=== PATIENT | female | born 1935 | race Caucasian/White ===

== ENCOUNTER → 2020-01-26 15:02 | Outpatient (BNVA) | payer MEDICARE, MEDICAID, SELFPAY | PROVIDERS: Visit Provider Internal Medicine Cardiovascular Disease | DX: I50.9 Heart failure, unspecified (principal); J44.9 Chronic obstructive pulmonary disease, unspecified; R60.0 Localized edema; Z99.81 Dependence on supplemental oxygen; Z79.899 Other long term (current) drug therapy | CPT/HCPCS: Q3014 ==

== ENCOUNTER 2020-09-05 09:25 | Outpatient (REF) | payer MEDICARE, MEDICAID, SELFPAY ==
[2020-09-05 11:48] LABS: Alanine Aminotransferase 13 U/L (0-31); Albumin Level 4.5 g/dL (3.5-5.0); Alkaline Phosphatase 124 U/L (39-117); Anion Gap 14 (12-20); Aspartate Amino Transferase 19 U/L (5-31); Bilirubin Total 0.6 mg/dL (0.0-1.0); Blood Urea Nitrogen 25 mg/dL (9-16); Calcium 9.5 mg/dL (8.4-10.2); Carbon Dioxide 25 mmol/L (22-29); Chloride 106 mmol/L (96-108); Cholesterol 247 mg/dL; Estimated Glomerular Filt Rate 41; Glucose Fasting 124 mg/dL (60-99); HDL Cholesterol 39 mg/dL; LDL Cholesterol Calculated 140 mg/dl; Potassium 4.4 mmol/L (3.3-5.1); Sodium 141 mmol/L (135-145); Total Protein 7.3 g/dL (6.5-8.0); Triglycerides 342 mg/dL
[2020-09-05 12:13] LABS: TSH reflex Free T4 2.32 uIU/mL (0.32-4.0); Vitamin D 25-OH Total 28.6 ng/mL (>30)
== END 2020-09-05 09:26 | disposition home or self-care (01) ==
LOC: HO.HMGCLDS 09:25
PROVIDERS: PCP Nurse Practitioner Family; Visit Provider Nurse Practitioner Family
DX: I50.9 Heart failure, unspecified (principal)
CPT/HCPCS: 36415; 80053; 80061; 82306; 84443

== ENCOUNTER 2020-09-21 09:46 | Outpatient (REF) | payer MEDICARE, MEDICAID, SELFPAY ==
[2020-09-21 11:40] LABS: Estimated Average Glucose 123 mg/dL; Hemoglobin A1c % 5.9 %
[2020-09-21 11:56] LABS: Cholesterol 236 mg/dL; HDL Cholesterol 39 mg/dL; LDL Cholesterol Calculated 137 mg/dl; Triglycerides 303 mg/dL
== END 2020-09-21 09:47 | disposition home or self-care (01) ==
LOC: HO.HMGCLDS 09:46
PROVIDERS: PCP Nurse Practitioner Family; Visit Provider Nurse Practitioner Family
DX: R73.01 Impaired fasting glucose (principal)
CPT/HCPCS: 36415; 80061; 83036

== ENCOUNTER → 2020-10-04 13:30 | Outpatient (BNVA) | payer MEDICARE, MEDICAID, SELFPAY | PROVIDERS: PCP Nurse Practitioner Family; Visit Provider Internal Medicine Cardiovascular Disease | DX: I50.9 Heart failure, unspecified (principal) | CPT/HCPCS: Q3014 ==

== ENCOUNTER → 2020-12-27 11:39 | Outpatient (BNVA) | payer MEDICARE, MEDICAID, SELFPAY | PROVIDERS: PCP Nurse Practitioner Family; Referring Provider Nurse Practitioner Family; Visit Provider Internal Medicine Cardiovascular Disease | DX: I50.9 Heart failure, unspecified (principal); J44.9 Chronic obstructive pulmonary disease, unspecified | CPT/HCPCS: Q3014 ==

== ENCOUNTER → 2021-05-16 09:50 | Outpatient (BNVA) | payer MEDICARE, MEDICAID, SELFPAY | PROVIDERS: PCP Nurse Practitioner Family; Referring Provider Nurse Practitioner Family; Visit Provider Internal Medicine Cardiovascular Disease | DX: I50.30 Unspecified diastolic (congestive) heart failure (principal); R06.00 Dyspnea, unspecified; J44.9 Chronic obstructive pulmonary disease, unspecified | CPT/HCPCS: 93005; 99212 ==

== ENCOUNTER → 2021-12-11 13:53 | Outpatient (BNVA) | payer MEDICARE, MEDICAID, SELFPAY | PROVIDERS: PCP Nurse Practitioner Family; Referring Provider Nurse Practitioner Family; Visit Provider Nurse Practitioner Family | DX: I35.0 Nonrheumatic aortic (valve) stenosis (principal); I50.9 Heart failure, unspecified; R06.00 Dyspnea, unspecified; J44.9 Chronic obstructive pulmonary disease, unspecified; Z79.899 Other long term (current) drug therapy | CPT/HCPCS: 99212 ==

== ENCOUNTER → 2022-07-03 13:56 | Outpatient (BNVA) | payer MEDICARE, MEDICAID, SELFPAY | PROVIDERS: PCP Nurse Practitioner Family; Referring Provider Nurse Practitioner Family; Visit Provider Nurse Practitioner Family | DX: I35.0 Nonrheumatic aortic (valve) stenosis (principal); I50.9 Heart failure, unspecified; J44.9 Chronic obstructive pulmonary disease, unspecified | CPT/HCPCS: 93005; 99212 ==

== ENCOUNTER 2022-12-23 08:03 | Outpatient (REF) | payer MEDICARE, MEDICAID, SELFPAY ==
[2022-12-23 08:52] LABS: MANUAL DIFF FLAG NO
[2022-12-23 09:01] LABS: Basophils Percent Auto 0.7 % (0-2); Eosinophils Absolute Auto 0.1 X10*3/uL (0.0-0.4); Eosinophils Percent Auto 1.3 % (0-4); Hematocrit 42.8 % (37.0-47.0); Hemoglobin 13.8 g/dl (12.0-16.0); Imm Gran Abs Auto 0.01 X10*3/uL (0.00-0.03); Imm Gran Pct Auto 0.2 % (0.0-0.4); Lymphocytes Absolute Auto 0.8 X10*3/uL (1.2-4.9); Mean Corpuscular HGB Conc 32.2 g/dl (31.0-35.0); Monocytes Absolute Auto 0.4 X10*3/uL (0.1-1.2); Monocytes Percent Auto 8.2 % (2-11); Neutrophils Absolute Auto 3.3 x10*3/uL (2.0-8.3); Neutrophils Percent Auto 72.6 % (45-73); Platelet Count 211 X10*3/uL (160-400); Red Cell Distribution Width 14.1 % (11.0-16.0); White Blood Count 4.5 X10*3/uL (4.8-10.8)
[2022-12-23 09:32] LABS: Alanine Aminotransferase 12 U/L (0-31); Alkaline Phosphatase 113 U/L (39-117); Anion Gap 16 (12-20); Aspartate Amino Transferase 21 U/L (5-31); Blood Urea Nitrogen 24 mg/dL (9-16); Calcium 9.2 mg/dL (8.4-10.2); Carbon Dioxide 25 mmol/L (22-29); Chloride 103 mmol/L (96-108); Cholesterol 233 mg/dL (<200); Estimated Glomerular Filt Rate 36; Glucose Random 120 mg/dL (60-115); HDL Cholesterol 35 mg/dL (>40); LDL Cholesterol Calculated 149 mg/dL (<100); Potassium 3.6 mmol/L (3.3-5.1); Sodium 140 mmol/L (135-145); Total Protein 6.9 g/dL (6.5-8.0); Triglycerides 249 mg/dL (<150)
== END 2022-12-23 08:04 | disposition home or self-care (01) ==
LOC: HO.LAB 08:03
PROVIDERS: PCP Nurse Practitioner Family; Visit Provider Nurse Practitioner Family
DX: I35.0 Nonrheumatic aortic (valve) stenosis (principal); I50.30 Unspecified diastolic (congestive) heart failure; J44.9 Chronic obstructive pulmonary disease, unspecified; E78.5 Hyperlipidemia, unspecified; Z79.899 Other long term (current) drug therapy
CPT/HCPCS: 36415; 80053; 80061; 85025; 99212

== ENCOUNTER 2022-12-23 08:03 | Outpatient (AMB) | payer MEDICARE, MEDICAID, SELFPAY ==
--- NOTE | 2022-12-23 08:15 | A.OFFVIS_ITS ---
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 HPI f/u with Echo patient refuse doing echo HPI Details Lynn is an 87-year-old female with past medical history hyperlipidemia, diastolic heart failure, aortic stenosis who presents for follow-up. Echo had been ordered prior to this visit and she declined it. Today she states she has been doing well since her last visit 6 months ago. She is pleased with how she is feeling. She reports some mild shortness of breath when she walks around her apartment. She ambulates with a walker. At this visit she is sitting in a wheelchair. She is mostly sedentary. No chest discomfort at rest or with activity. She describes 1 episode of dizziness when she was sitting at her table doing coloring. No recurrent dizziness, no presyncope, syncope, falls. No PND, orthopnea. She gets some mild edema in her right lower leg. She has a history a right total knee replacement which still gives her discomfort. Takes her Lasix as directed. On no other medications. Daughter in-law is present. [facility] Medical History Aortic stenosis Surgical History Hx of appendectomy Hx of tonsillectomy History of knee surgery History of hysterectomy Family History Mother No problems noted. Father CAD (coronary artery disease) Social History Alcohol intake: never Patient Tobacco Use Status: Former Tobacco user Quit Date: 1999 Years Smoked: 15+ Review of Systems Const All systems reviewed & are unremarkable except as noted in HPI and below ENT Denies dizziness Card Denies chest pain, Denies chest pain at rest, Denies chest pain with activity, Denies rapid heart rate, Denies pedal edema, Denies edema, Denies leg edema, Denies lightheadedness, Denies palpitations, Denies dyspnea, Denies dyspnea on exertion and Denies orthopnea Resp Denies cough, Denies dyspnea and Denies dyspnea on exertion GI Denies hematochezia and Denies change in stool character Musc Reports abnormal gait, Reports limited range of motion, Denies muscle cramps, Denies muscle weakness, Denies numbness, Denies radiating pain into limb, Denies stiffness and Denies tingling Neuro Reports abnormal gait, Denies dizziness, Denies numbness and Denies tingling Endo Denies palpitations Physical Exam Const Other: sitting in wheelchair General: cooperative, healthy appearing, comfortable and no acute distress Orientation/consciousness: patient oriented x3 Neck Neck: Yes normal visual inspection and Yes no JVD Resp Effort & Inspection: normal respiratory effort Auscultation: clear to auscultation bilaterally, no crackles, no rales, no rhonchi and no wheezes Cardio Rate: regular rate Rhythm: regular rhythm Heart sounds: S1 normal heart sound present, S2 normal heart sound present, no gallops, Murmur heart sound present (Faint systolic) and no rubs GI Inspection: Yes normal to inspection Neuro General: patient oriented x3 Extrem General: Yes normal to inspection Psych Appearance: grossly normal Mental Status: mental status grossly normal Speech and movement: Normal speech and movement present Assessment & Plan Assessment & Plan (1) Aortic stenosis: Code(s): I35.0 - Nonrheumatic aortic (valve) stenosis Qualifiers: Cardiac valve disease etiology: nonrheumatic Qualified Code(s): I35.0 - Nonrheumatic aortic (valve) stenosis Plan: History of mild aortic stenosis. Last echo done 12/23/2016 showing EF 60-65%, no regional wall motion abnormalities, mild aortic stenosis, [id number] mitral regurgitation, mild pulmonary hypertension. Faint systolic murmur noted on examination, does not sound severe. She has no clinical signs of heart failure. No cardinal signs of severe . Discussed diagnosis of with her in detail. She declines future echo cardiograms as she says she is not going to have valve surgery in the event that it is needed. Reviewed signs and symptoms of severe aortic stenosis. Emergency care if ever needed for symptoms. Cardiology follow-up in 1 year, sooner if needed (2) CHF (congestive heart failure): Code(s): I50.9 - Heart failure, unspecified Qualifiers: Heart failure type: diastolic Heart failure chronicity: chronic Qualified Code(s): I50.32 - Chronic diastolic (congestive) heart failure Plan: History of diastolic heart failure. Condition stable at present. She currently takes 60 mg of Lasix alternating with 40 mg of Lasix daily. No recent labs in our system. Her PCP is an [facility] provider. Will order labs to be completed today. Discussed good hydration with at least 48 oz of fluid daily. On last visit she reported drinking less than 20 oz daily. Signs and symptoms of heart failure discussed, low-salt diet reviewed. (3) COPD (chronic obstructive pulmonary disease): Code(s): J44.9 - Chronic obstructive pulmonary disease, unspecified Qualifiers: COPD type: unspecified COPD Qualified Code(s): J44.9 - Chronic obstructive pulmonary disease, unspecified Plan: She has mild shortness of breath with exertion which is unchanged in recent months Orders: Orders Lipid Panel Today E78.5 - Hyperlipidemia, unspecified Complete Blood Count Auto Diff Today R06.00 - Dyspnea, unspecified Coding Level of Care Code Est Pt Level 3 (80564) Diagnoses Nonrheumatic aortic valve stenosis I35.0 Cardiac valve disease etiology: nonrheumatic Chronic diastolic congestive heart failure I50.32 Heart failure type: diastolic Heart failure chronicity: chronic Chronic obstructive pulmonary disease, unspecified COPD type J44.9 COPD type: unspecified COPD Time Spent (min) 22
[2022-12-23 08:16] VITALS: BP 120/62; PULSE 64; BMI 37.2
== END 2022-12-23 08:42 | disposition home or self-care (01) ==
PROVIDERS: PCP Nurse Practitioner Family; Visit Provider Nurse Practitioner Family
DX: I35.0 Nonrheumatic aortic (valve) stenosis (principal); I50.32 Chronic diastolic (congestive) heart failure; J44.9 Chronic obstructive pulmonary disease, unspecified
CPT/HCPCS: 99213

== ENCOUNTER 2023-12-01 09:27 | Outpatient (AMB) | payer MEDICARE, MEDICAID, SELFPAY ==
--- NOTE | 2023-12-01 09:44 | A.OFFVIS_ITS ---
Vital Signs 12/01/23 09:45 Height 5 ft 1 in BP 142/60 H Blood Pressure Location Rt brachial Position Sitting Pulse 75 Pulse Source Monitor Intake Visit Reasons: 1 yr f/up Nurse Anesthetist Required: No Sales [employer] Support Center Agent: Sales And Support Center Agent Present Allergies No Known Allergies [No Known Allergies*] Allergy (Verified 12/23/22 08:21) Medication List - Last Reconciled 12/01/23 by Winter Zuniga NP-C furosemide 20 mg PO DIRECTED 90 days HPI HPI 1 yr f/up: Details: Lynn is an 88-year-old female with past medical history hyperlipidemia, diastolic heart failure, aortic stenosis who presents for follow-up. Today she states she has been getting some tightness across her chest in the last few weeks. She thought it was a new bra that she was wearing but even when she took the brought off she was having the tightness sensation. It has been random, not exertional, lasting minutes at a time. She tells me this is new for her. She denies any change to her breathing. She has some mild shortness of breath when walking around her apartment. Overall she is mostly sedentary. No heart palpitations, lightheadedness, presyncope, syncope, falls. No PND, orthopnea. Noticing some increased edema in her lower legs and asking for a diuretic increased. Son is present. Patient is sitting in a wheelchair at this visit. [facility] Medical History Aortic stenosis Surgical History Hx of appendectomy Hx of tonsillectomy History of knee surgery History of hysterectomy Family History Mother No problems noted. Father CAD (coronary artery disease) Social History Alcohol intake: never Patient Tobacco Use Status: Former Tobacco user Years Smoked: 15+ Review of Systems Const All systems reviewed & are unremarkable except as noted in HPI and below ENT Denies dizziness Card Reports chest pain (pressure), Reports chest pain at rest, Denies chest pain with activity, Denies rapid heart rate, Denies pedal edema, Denies edema, Denies leg edema, Denies lightheadedness, Denies palpitations, Denies dyspnea, Denies dyspnea on exertion and Denies orthopnea Resp Denies cough, Denies dyspnea and Denies dyspnea on exertion GI Denies hematochezia and Denies change in stool character Musc Denies abnormal gait, Denies limited range of motion, Denies muscle cramps, Denies muscle weakness, Denies numbness, Denies radiating pain into limb, Denies stiffness and Denies tingling Neuro Denies abnormal gait, Denies dizziness, Denies numbness and Denies tingling Endo Denies palpitations Physical Exam Const Other: sitting in wheelchair General: cooperative, healthy appearing, comfortable and no acute distress Orientation/consciousness: patient oriented x3 Neck Neck: Yes normal visual inspection and Yes no JVD Resp Effort & Inspection: normal respiratory effort Auscultation: clear to auscultation bilaterally, no crackles, no rales, no rhonchi and no wheezes Cardio Rate: regular rate Rhythm: regular rhythm Heart sounds: S1 normal heart sound present, S2 normal heart sound present, no gallops, Murmur heart sound present (Faint systolic) and no rubs GI Inspection: Yes normal to inspection Neuro General: patient oriented x3 Extrem Other: +1 ankle swelling noted General: Yes normal to inspection Psych Appearance: grossly normal Mental Status: mental status grossly normal Speech and movement: Normal speech and movement present Office Procedures EKG Details: Today read by me, normal sinus rhythm, right axis deviation, septal Q, unchanged from prior, rate 75, QTC 446 millisecond [id number], Complete Assessment & Plan Assessment & Plan (1) Aortic stenosis: Code(s): I35.0 - Nonrheumatic aortic (valve) stenosis Category: Medical Qualifiers: Cardiac valve disease etiology: nonrheumatic Qualified Code(s): I35.0 - Nonrheumatic aortic (valve) stenosis Plan: History of mild aortic stenosis, as of 2017. Last echo done 12/23/2016 showing EF 60-65%, no regional wall motion abnormalities, mild aortic stenosis, [id number] mitral regurgitation, mild pulmonary hypertension. Faint systolic murmur noted on examination, does not sound severe as 2nd heart tone is still audible. She has been noticing some tightness in her chest for the last few weeks. This is a new symptom for her. She has no increased shortness of breath, lightheadedness, presyncope or syncope. Informed her this could be a cardinal signs of severe also could be related to obstructive coronary artery disease. She declines any testing including echocardiogram or stress test. She only wants to be kept comfortable and treated with medications as needed. Reviewed the progressive nature of aortic stenosis. Cardinal signs of severe reviewed. She is not interested in any surgical intervention. Her blood pressure is mildly elevated. Will add a low-dose metoprolol to see if this helps with her discomfort. Plan to call her in a few weeks. Recommended Emergency care if ever needed for symptoms, but she declines. Cardiology follow-up in 6 months, sooner if needed (2) Chest pressure: Code(s): R07.89 - Other chest pain Category: Medical Plan: As above. Could be related to severe or obstructive coronary disease. Reviewed with her. She states understanding. She only wants med management and as few medicines as possible. At this time she only takes Lasix. Will be a dding low-dose metoprolol. (3) CHF (congestive heart failure): Code(s): I50.9 - Heart failure, unspecified Category: Medical Qualifiers: Heart failure type: diastolic Heart failure chronicity: chronic Qualified Code(s): I50.32 - Chronic diastolic (congestive) heart failure Plan: History of diastolic heart failure. Condition has been mostly stable. Today she reports some increase in her lower leg edema. Plus one edema noted on examination. Labs from 12/23/2022 shows creatinine 1.38. Will increase her Lasix from 60 mg of Lasix alternating with 40 mg of Lasix daily, to 60 mg daily. No recent labs in our system. She has lab orders pending as ordered by PCP. Signs and symptoms of heart failure discussed, low-salt diet reviewed. (4) COPD (chronic obstructive pulmonary disease): Code(s): J44.9 - Chronic obstructive pulmonary disease, unspecified Category: Medical Qualifiers: COPD type: unspecified COPD Qualified Code(s): J44.9 - Chronic obstructive pulmonary disease, unspecified Plan: She has mild shortness of breath with exertion which is unchanged in recent months Plan Time spent on chart review, documentation, interview and assessment Medications: New metoprolol succinate ER new 25 mg PO DAILY 30 tabs 5RF Changed From furosemide Take 40 mg (2 tabs) by mouth in the morning daily, and take an additional 20 mg (1tab) in afternoon every other day. 20 mg PO DIRECTED 90 days 225 tabs 1RF To furosemide 60 mg (3 x 20 mg) PO BID 30 days 180 tabs 6RF Coding Level of Care Code Est Pt Level 4 (57196) Diagnoses Nonrheumatic aortic valve stenosis I35.0 Cardiac valve disease etiology: nonrheumatic Chest pressure R07.89 Chronic diastolic congestive heart failure I50.32 Heart failure type: diastolic Heart failure chronicity: chronic Chronic obstructive pulmonary disease, unspecified COPD type J44.9 COPD type: unspecified COPD CPT Codes EKG - CPT: 57892-[id number], Complete ([id number]) Time Spent (min) 36
[2023-12-01 09:45] VITALS: BP 142/60; PULSE 75
== END 2023-12-01 10:21 | disposition home or self-care (01) ==
PROVIDERS: PCP Nurse Practitioner Family; Visit Provider Nurse Practitioner Family
DX: I35.0 Nonrheumatic aortic (valve) stenosis (principal); R07.89 Other chest pain; I50.32 Chronic diastolic (congestive) heart failure; J44.9 Chronic obstructive pulmonary disease, unspecified
CPT/HCPCS: 93010; 99214

== ENCOUNTER → 2023-12-01 09:27 | Outpatient (BNVA) | payer MEDICARE, MEDICAID, SELFPAY | PROVIDERS: PCP Nurse Practitioner Family; Visit Provider Nurse Practitioner Family | DX: I35.0 Nonrheumatic aortic (valve) stenosis (principal); I50.32 Chronic diastolic (congestive) heart failure; R07.89 Other chest pain; J44.9 Chronic obstructive pulmonary disease, unspecified | CPT/HCPCS: 93005; 99212 ==

== ENCOUNTER 2024-07-06 11:47 | Emergency (ER) | payer MEDICARE, MEDICAID, SELFPAY ==
--- NOTE | ~2024-07-06 | US_ITS ---
EXAMINATION: US TRIPLEX UPPER EXTREMITY, RIGHT CLINICAL INFORMATION: Right arm swelling and pain. COMPARISON: None available. TECHNIQUE: Color-flow triplex imaging with spectral analysis and compression Doppler was performed on the right upper extremity. FINDINGS: The right internal jugular, subclavian, and axillary veins are patent and free of thrombus. The imaged segment of the right brachiocephalic vein is patent. Spectral doppler waveforms are normal. The brachial, basilic, cephalic, radial, and ulnar veins are patent and compressible. US/US venous duplex UE RT IMPRESSION: No evidence of deep venous thrombosis involving the right upper extremity. Electronically signed by: Thad Isbell MD 07/06/2024 02:04 PM EDT
--- NOTE | 2024-07-06 11:48 | ECG_ITS ---
Test Reason : sob Blood Pressure : */* mmHG Vent. Rate : 76 BPM Atrial Rate : 76 BPM P-R Int : 186 ms QRS Dur : 80 ms QT Int : 402 ms P-R-T Axes : 76 34 48 degrees QTcB Int : 452 ms Normal sinus rhythm Cannot rule out Anterior infarct (cited on or before 17-Mar-2018) Abnormal ECG When compared with ECG of 17-Mar-2018 09:16, Questionable change in initial forces of Anterior leads Referred By: Bety Munroe Electronically Signed By: Nadeem Burger
--- NOTE | 2024-07-06 11:48 | ED_ITS ---
HPI - General Adult General Chief complaint: General Medical Stated complaint: R arm pain Time Seen by Provider: 07/06/24 12:10 Source: patient and family (patient's son and [id number]) Mode of arrival: ambulatory Limitations: no limitations History of Present Illness ED Provider: Ondina Sebastian PA-C HPI narrative: 89 year-old female with PMHx of aortic stenosis, COPD, CHF, and dyslipidemia presents to the ED due to right forearm pain. Patient reports she woke up this morning feeling well and performed her ADL's without incident. However, when she began coloring with ink pens (using her right hand) she noticed a cramping pain start in the right wrist and travel up into the forearm area. She states she had a difficult time opening her right hand from gripping the pen after the onset of the pain. She denies swelling, ecchymosis, or skin temperature changes of the right arm. She denies chest pain, SOB, lower extremity swelling, fever, nausea, or vomiting. Onset (ago): hour(s) Location: right and upper extremity (forearm) Severity: mild Quality: aching and constant Pain Consistency: constant Relieving factors: none Exacerbating factors: none Associated symptoms: denies other symptoms Treatments prior to arrival: none Related Data Previous Rx's ?Medication ?Instructions ?Recorded furosemide 20 mg tablet 60 mg (3 x 20 mg) PO BID #540 tabs 05/26/24 metoprolol succinate 25 mg 25 mg PO DAILY #90 tabs 05/27/24 tablet,extended release 24 hr Allergies Allergy/AdvReac Type Severity Reaction Status Date / Time No Known Allergies Allergy Verified 07/06/24 11:52 [No Known Allergies*] Review of Systems 2 Constitutional: Constitutional: Reports no additional constitutional complaints, Denies chills, Denies fever(s) and Denies night sweats Eyes: Eyes: Reports no additional eye complaints, Denies blurry vision, Denies change in vision, Denies diplopia, Denies eye discharge, Denies loss of vision and Denies eye pain ENT: Denies dizziness Cardiovascular: Cardiovascular: Reports no additional cardiovascular complaints, Denies chest pain, Denies lightheadedness, Denies Loss of Consciousness and Denies dyspnea Respiratory: Respiratory: Reports no additional respiratory complaints and Denies dyspnea Gastrointestinal: Gastrointestinal: Reports no additional gastrointestinal complaints, Denies abdominal pain, Denies melena, Denies hematochezia, Denies change in bowel habits and Denies change in stool character Genitourinary: Genitourinary: Denies hematuria, Denies urinary frequency, Denies dysuria, Denies urinary incontinence, Denies urinary hesitancy and Denies urinary urgency Musculoskeletal: Musculoskeletal: Reports as per HPI, Denies numbness, Denies tingling and Reports other (cramping pain of the right forearm) Neurologic: Denies dizziness, Denies loss of vision, Denies numbness and Denies tingling Psychiatric: Psychiatric: Reports no additional psychiatric complaints Endocrine: Endocrine: Reports no additional endocrine complaints Hematologic/Lymphatic: Hematologic/Lymphatic: Reports no additional hematologic/lymphatic complaints Allergic/Immunologic: Allergic/Immunologic: Reports no additional allergic/immunologic complaints PMFSH Past Medical History Attestation statement: The following information was validated with the patient. (all information validated with the patient's son and [id number]) Source: old records reviewed, obtained from family (patient's son and [id number] provided additional history and confirmed the history provided by the patient. ) and nursing notes reviewed Medical History Aortic stenosis Surgical History Hx of appendectomy Hx of tonsillectomy History of knee surgery History of hysterectomy Family History Family History Mother No problems noted. Father CAD (coronary artery disease) Social History Social History Alcohol intake: never Patient Tobacco Use Status: Former Tobacco user Years Smoked: 15+ Smoked in Last 30 Days: No Use of substances other than those prescribed or required for medical reasons: No Advance Directives: No Advance Directives Information Provided: Yes Do you have a plan to hurt others: No Plan Physical Exam ED Vital Signs: Vital Signs - 24 hr 07/06/24 11:50 07/06/24 14:28 07/06/24 14:31 Temperature 98 F 98.2 F 98.2 F Pulse Rate 73 62 62 Respiratory Rate 19 16 16 Blood Pressure 149/67 H 136/72 136/72 Pulse Oximetry 94 96 96 Oxygen Delivery Method Room Air Room Air Room Air BMI result Body Mass Index 33.8 Const General: cooperative, no acute distress, alert and awake Nutritional Appearance: well nourished Orientation/consciousness: patient oriented x3 HENMT Head: Yes normal to inspection and Yes atraumatic Ears: hearing grossly normal bilaterally and external ears normal General nose exam: Normal external nose present, no nasal discharge noted and no epistaxis Face and sinus: Yes normal facial exam, No abrasion and No laceration Mouth: Normal oral and palatal mucosa present, no drooling and no muffled voice Eyes General: appearance normal, both eyes and all related structures Periorbital: periorbital findings normal Eyelids: Yes eyelids normal Conjunctivae: conjunctivae normal Pupils: Equal, round and reactive pupils present EOM: EOMs intact bilaterally Neck Neck: Yes normal visual inspection, Yes full ROM and Yes no lymphadenopathy Resp Effort & Inspection: normal respiratory effort and able to speak in complete sentences Neuro General: patient oriented x3, moves all extremities and CN's II-XI intact bilaterally Cranial nerves: Yes Equal, round and reactive pupils present Cognition (Neuro): normal cognition Extrem Other: tenderness to palpation of the right brachioradialis muscle General: Yes normal to inspection, Yes full ROM and Yes capillary refill normal Psych Appearance: grossly normal Mental Status: mental status grossly normal Affect: normal affect Attitude: cooperative Thought process: Normal thought process present Thought content: Normal thought content present Insight: Good insight present (Psych) Course Course Course Narrative: This is a Rapid Medical Examination (RME) performed by Joseph Munroe PA-C in triage. Full HPI, ROS, assessment and treatment plan per primary provider in the Main ED. 07/06/24 1155 ANAT Concepcion Hx: 89 yo female COPD, CHF, aortic stenosis, here w/ right arm pain shortly after waking this morning. pain began while she was coloring, began as a cramp in her hand now radiating up her right upper extremity. no injury/trauma. reported SOB to walk-in nurse today however now denying SOB. PE/vitals: well appearing, vitals stable. 2+ radial pulse. no obvious skin changes to RUE. cap refill <2 sec. Plan: labs, ekg Medical Decision Making Medical Decision Making MDM Narrative: 89 year-old female with PMHx of aortic stenosis and CHF presents to the ED due to right arm pain. Patients vital signs stable. Patient is in no acute distress and is non-toxic appearing. On physical exam focal tenderness over right dorsal brachioradialis muscle. No ecchymosis or skin temperature changes. PMS present and intact to the RUE. Will obtain labs with BNP, EKG, troponin to rule out ACS, CHF exacerbation, electrolyte abnormalities. Will obtain tick panel and TSH to rule out thyroid etiology of muscle cramping/pain. Will obtain U/S to rule out DVT. High suspicion of MSK cramp/overuse of the right arm due to onset of symptoms secondary to extended - intense use, and focal muscle tenderness to palpation. EKG and troponins flat, low suspicion for ACS. Labs reveal elevated creatinine of 1.47 suggesting very mild dehydration - given histry of CHF, will not give IVF while in the department and instead encourage oral re-hydration of electrolyte containing fluids at home. Mildly elevated TSH of 4.25 with normal free t4 - will chemical dependency counselor patient to follow up with PCP to continue to monitor. BNP elevated at 469 however, on physical exam, there is no pitting lower extremity edema, crackles heard at lung bases, SOB, or orthopnea - unlikely CHF exacerbation. No electrolyte abnormalities. UA showing trace leukocyte esterases - however, without any clinical signs or symptoms of UTI, will await culture before initiating treatment. Right upper extremity U/S negative for DVT. Tick panel pending - however, unlikely etiology given no evidence of tick bite / exposure. Patient's clinical presentation is most consistent with a muscle spasm secondary to overuse. I recommended the patient use a large pencil / utensil facility service associate to ease the intensity in which she manager plan the utensil to help ease these symptoms. I explained my physical exam findings as well as all test results to the patient, the patient's son, and the patient's [id number]. I answered all questions asked by the patient, the patient's son, and the patient's [id number]. I stressed the importance of the patient taking her medication as directed (either prescribed or as the over the counter packaging recommends). I stressed the importance of the patient following up with her primary care provider. I stressed the importance of the patient returning to the emergency department immediately if her symptoms were to worsen or if she were to develop any dizziness, shortness of breath, difficulty breathing, chest pain, blurry vision, loss of vision, nausea, vomiting, abdominal pain, fever, chills, back pain, or any other complaints. The patient, the patient's son, and the patient's [id number] verbalized agreement and understanding with this treatment plan and discharge. Differential Diagnosis Differential Diagnoses: The differential diagnosis associated with the presentation includes ACS NSTEMI STEMI DVT Overuse injury Musculoskeletal pain Electrolyte abnormality Admission/Observation Consideration of admission/observation: Escalation of care including admission/observation considered Patient would have been admitted to the hospital had her work up had any findings where hospital admission was appropriate and her clinical presentation warranted hospital admission. Lab Data [facility] Lab Attestation statement: I reviewed the patient's lab results. My interpretation of these results are in the MDM Rationale portion of this note. 07/06/24 12:07 07/06/24 12:07 Labs: Lab Results 07/06/24 07/06/24 07/06/24 Range/Units 12:07 12:51 13:20 WBC 4.8 (4.8-10.8) X10*3/uL RBC 4.39 (4.20-5.50) X10*6/uL Hgb 13.5 (12.0-16.0) g/dl Hct 40.6 (37.0-47.0) % MCV 92.5 (80.0-98.0) fL MCH 30.8 (27.0-33.0) pg MCHC 33.3 (31.0-35.0) g/dl RDW 14.0 (11.0-16.0) % Plt Count 236 (160-400) X10*3/uL MPV 10.0 (9.4-12.3) fL Immature Gran % (Auto) 0.2 (0.0-0.4) % Neut % (Auto) 72.4 (45-73) % Lymph % (Auto) 18.0 L (20-40) % [place] % (Auto) 7.5 (2-11) % Eos % (Auto) 1.5 (0-4) % Baso % (Auto) 0.4 (0-2) % Lymph # (Auto) 0.9 L (1.2-4.9) X10*3/uL [place] # (Auto) 0.4 (0.1-1.2) X10*3/uL Eos # (Auto) 0.1 (0.0-0.4) X10*3/uL Baso # (Auto) 0.0 (0.0-0.2) X10*3/uL Abs Immat Gran (auto) 0.01 (0.00-0.03) X10*3/uL Absolute Neuts (auto) 3.5 (2.0-8.3) x10*3/uL Absolute Nucleated RBC 0.000 (0.0-0.012) X10*3/uL Nucleated RBC % (auto) 0.0 (0.0-0.2) /100WBC Sodium 142 (135-145) mmol/L Potassium 3.6 (3.3-5.1) mmol/L Chloride 108 (96-108) mmol/L Carbon Dioxide 23 (22-29) mmol/L Anion Gap 15 (12-20) BUN 39 H (9-16) mg/dL Creatinine 1.47 H (0.5-1.4) mg/dL Estim Creat Clear Calc 27.0 Estimated GFR 34 Random Glucose 111 (60-115) mg/dL Calcium 9.1 (8.4-10.2) mg/dL Magnesium 2.3 (1.6-2.6) mg/dL Total Bilirubin 0.4 (0.0-1.0) mg/dL AST 24 (5-31) U/L ALT 12 (0-31) U/L Alkaline Phosphatase 121 H (39-117) U/L Troponin I High Sens 5.9 7.9 (<3.5-17.0) ng/L B-Natriuretic Peptide 469 H (<100) pg/mL Total Protein 7.0 (6.5-8.0) g/dL Albumin 4.0 (3.5-5.0) g/dL Vitamin B12 373 (200-900) pg/mL Folate 6.0 (> or = 4.0) ng/mL TSH 4.25 H (0.32-4.0) uIU/mL Free T4 0.78 (0.71-1.85) ng/dL Urine Color Yellow Urine Appearance Clear Urine pH 5.5 (5.0-9.0) Ur Specific [place] 1.010 (1.005-1.025) Urine Protein Negative (Neg-Trace) mg/dL Urine Glucose (UA) Negative (Negative) mg/dL Urine Ketones Negative (Negative) mg/dL Urine Blood Negative (Negative) Urine Nitrite Negative (Negative) Ur Leukocyte Esterase Trace H (Negative) Urine RBC 0-2 (0-2) /HPF Urine WBC 0-5 (0-5) /HPF Ur Squamous Epith Cells 0-2 (0-2) /HPF Urine Bacteria 4+ (None Seen) Hyaline Casts 0-2 (0-2) /LPF Influenza Type A (PCR) NEGATIVE (Negative) Influenza Type B (PCR) NEGATIVE (Negative) RSV RNA Qual (PCR) NEGATIVE (Negative) SARS-CoV-2 RNA (RT-PCR) NEGATIVE (Negative) Independent Interpretation I performed an independent interpretation of an: EKG and Ultrasound Interpretation: My interpretation is in agreement with the radiologist's impression of this imaging study. L EXAMINATION: US TRIPLEX UPPER EXTREMITY, RIGHT CLINICAL INFORMATION: Right arm swelling and pain. COMPARISON: None available. TECHNIQUE: Color-flow triplex imaging with spectral analysis and compression Doppler was performed on the right upper extremity. FINDINGS: The right internal jugular, subclavian, and axillary veins are patent and free of thrombus. The imaged segment of the right brachiocephalic vein is patent. Spectral doppler waveforms are normal. The brachial, basilic, cephalic, radial, and ulnar veins are patent and compressible. US/US venous duplex UE RT IMPRESSION: No evidence of deep venous thrombosis involving the right upper extremity. Electronically signed by: Thad Isbell MD 07/06/2024 02:04 PM EDT I independently interpreted this EKG and am in agreement with the below findings: Vent. Rate: 76 BPM Atrial Rate: 76 BPM P-R Int: 186 ms QRS Dur: 80 ms QT Int: 402 ms P-R-T Axes: 76 34 48 degrees QTcB Int: 452 ms Normal sinus rhythm Cannot rule out Anterior infarct (cited on or before 17-Mar-2018) Referred By: Bety Munroe Radiology Impression Discussion of test interpretation with radiology: I have reviewed the radiologist's reading. Independent Historian Clinical information obtained from an independent historian. History obtained from or confirmed by: Other (patient's son and [id number] provided additional history and confirmed the history provided by the patient. ) External Record Review External record reviewed: Inpatient record and Outpatient record Discharge Plan Discharge Clinical Impression: Muscle spasm, Dehydration Patient Disposition: Home, Self-Care Instructions: Dehydration (ED), Muscle Spasm (ED) Additional Instructions: As discussed, your lab work showed that you were very mildly dehydrated. Be sure to drink eleoctroyte containing fluids such as sugar free Gatorade or Powerade to address this. Please consider using a large pencil / pen / brush facility service associate to ease the intensity of the facility service associate around the utensil and avoid future muscle spasms like this. Apply heat (with a barrier between the heat source and your skin) to your arm for pain relief. Follow up with your primary care provider (be sure to have him review the lab work you had done here today). Return to the emergency department immediately if your symptoms worsen or if you develop any numbness, tingling, dizziness, shortness of breath, difficulty breathing, chest pain, blurry vision, loss of vision, nausea, vomiting, abdominal pain, fever, chills, back pain, or any other complaints. Please see the information below about our Patient Portal. If you are not yet enrolled in the [facility] Patient Portal, you will receive an enrollment email invitation following your visit to any [facility] setting. You may also self-enroll in the Patient Portal by visiting our website: [email or web address] The following information is required to access the Patient Portal: - Your [facility] Medical Record Number - Your personal home email address (must match what is in your electronic medical record, Registration staff can assist with this) - Name - Date of Capabilities of the Patient Portal: - Message some providers - View upcoming appointments - Access your health summary, medical history, and visit history - View current conditions and allergies - View procedure and lab results - View your medications, including guidelines, side effects, and precautions - Complete pre-appointment questionnaires requested by your provider - Ready summary reports of your office visits and procedures To access the Patient Portal Mobile [employer], follow these directions: - Search [employer] in the [employer] Store or [employer] Store - Download the [employer] - Search for [facility] - Enter your login/password Prescriptions: No Action furosemide 20 mg tablet 60 mg PO BID Qty: 540 2RF metoprolol succinate 25 mg tablet extended release 24 hr 25 mg PO DAILY Qty: 90 1RF Referrals: Orlando Alonso, SLIDE MACHINE TENDER-BC [Primary Care Provider] - Interventions: ED Discharge Assessment Last Done: 07/06/24 14:31 Discharge Date/Time: 07/06/24 14:32 Print Language: Kyrgyz
[2024-07-06 11:50] VITALS: BP 149/67; PULSE 73; RESP 19; TEMP 36.6; O2SAT 94; BMI 33.8
[2024-07-06 12:15] LABS: MANUAL DIFF FLAG NO
[2024-07-06 12:26] LABS: Basophils Percent Auto 0.4 % (0-2); Eosinophils Absolute Auto 0.1 X10*3/uL (0.0-0.4); Eosinophils Percent Auto 1.5 % (0-4); Hematocrit 40.6 % (37.0-47.0); Hemoglobin 13.5 g/dl (12.0-16.0); Imm Gran Abs Auto 0.01 X10*3/uL (0.00-0.03); Imm Gran Pct Auto 0.2 % (0.0-0.4); Lymphocytes Absolute Auto 0.9 X10*3/uL (1.2-4.9); Mean Corpuscular HGB Conc 33.3 g/dl (31.0-35.0); Mean Corpuscular Hemoglobin 30.8 pg (27.0-33.0); Mean Corpuscular Volume 92.5 fL (80.0-98.0); Monocytes Absolute Auto 0.4 X10*3/uL (0.1-1.2); Monocytes Percent Auto 7.5 % (2-11); Neutrophils Absolute Auto 3.5 x10*3/uL (2.0-8.3); Neutrophils Percent Auto 72.4 % (45-73); Platelet Count 236 X10*3/uL (160-400); Red Blood Count 4.39 X10*6/uL (4.20-5.50); White Blood Count 4.8 X10*3/uL (4.8-10.8)
[2024-07-06 12:32] LABS: Alanine Aminotransferase 12 U/L (0-31); Alkaline Phosphatase 121 U/L (39-117); Anion Gap 15 (12-20); Aspartate Amino Transferase 24 U/L (5-31); Bilirubin Total 0.4 mg/dL (0.0-1.0); Blood Urea Nitrogen 39 mg/dL (9-16); Calcium 9.1 mg/dL (8.4-10.2); Carbon Dioxide 23 mmol/L (22-29); Chloride 108 mmol/L (96-108); Estimated Glomerular Filt Rate 34; Glucose Random 111 mg/dL (60-115); Magnesium 2.3 mg/dL (1.6-2.6); Potassium 3.6 mmol/L (3.3-5.1); Sodium 142 mmol/L (135-145)
[2024-07-06 12:39] LABS: Troponin-I High Sensitivity 5.9 ng/L (<3.5-17.0)
[2024-07-06 12:56] LABS: Influenza A PCR NEGATIVE (Negative); Influenza B PCR NEGATIVE (Negative); Resp Syncy Virus RNA Qual PCR NEGATIVE (Negative); SARS COV2 PCR INHOUSE NEGATIVE (Negative)
[2024-07-06 12:58] LABS: B Type Natriuretic Peptide 469 pg/mL (<100)
[2024-07-06 13:27] LABS: Appearance Urine Clear; Color Urine Yellow; Glucose Urine UA Negative (Negative); Leukocyte Esterase Urine Trace (Negative); Nitrite Urine Negative (Negative); PH 5.5 (5.0-9.0); UMIC TRIGGER UACC YES; Urine Blood Negative (Negative); Urine Ketones Negative (Negative); Urine Protein Negative (Neg-Trace)
[2024-07-06 13:35] LABS: TSH reflex Free T4 4.25 uIU/mL (0.32-4.0)
[2024-07-06 13:40] LABS: Bacteria Urine 4+ (None Seen); Hyaline Casts Urine 0-2 /LPF (0-2); RBC Urine 0-2 /HPF (0-2); Squamous Epithelial Cell Urine 0-2 /HPF (0-2); WBC Urine 0-5 /HPF (0-5)
[2024-07-06 13:51] LABS: Troponin-I High Sensitivity 7.9 ng/L (<3.5-17.0)
[2024-07-06 14:17] LABS: Vitamin B12 373 pg/mL (200-900)
[2024-07-06 14:18] LABS: Free T4 (Free Thyroxine) 0.78 ng/dL (0.71-1.85)
[2024-07-06 14:28] VITALS: BP 136/72; PULSE 62; RESP 16; TEMP 36.8; O2SAT 96
[2024-07-06 14:31] VITALS: BP 136/72; PULSE 62; RESP 16; TEMP 36.8; O2SAT 96
[2024-07-07 11:03] LABS: Lyme Abs Screen <0.90 index
[2024-07-08 02:34] LABS: A. Phagocytphilium DNA,RT-PCR NOT DETECTED (NOT DETECTED); Babesia Microti DNA, RT-PCR NOT DETECTED (NOT DETECTED); Borrelia Miyamotoi,DNA RT-PCR NOT DETECTED (NOT DETECTED); E.Chaffeensis DNA RT-PCR NOT DETECTED (NOT DETECTED); Lyme(Borrelia ssp)DNA RT-PCR NOT DETECTED (NOT DETECTED)
== END 2024-07-06 14:32 | disposition home or self-care (01) ==
PROVIDERS: Physician Assistant Medical; Emergency Provider Emergency Medicine; PCP Nurse Practitioner Family
DX: E86.0 Dehydration (principal); M62.838 Other muscle spasm; M79.631 Pain in right forearm; J44.9 Chronic obstructive pulmonary disease, unspecified; I50.9 Heart failure, unspecified; Z03.818 Encounter for observation for suspected exposure to other biological agents ruled out
CPT/HCPCS: 0241U; 36415; 80053; 81001; 82607; 82746; 83735; 83880; 84439; 84443; 84484; 85025; 86617; 86618; 87468; 87469; 87478; 87484; 87798; 93005; 93971; 99284

== ENCOUNTER → 2024-07-06 11:48 | Outpatient (BNV) | payer MEDICARE, MEDICAID, SELFPAY | PROVIDERS: Emergency Provider Emergency Medicine; PCP Nurse Practitioner Family; Visit Provider Internal Medicine Cardiovascular Disease | DX: R94.31 Abnormal electrocardiogram [ECG] [EKG] (principal); R06.02 Shortness of breath | CPT/HCPCS: 93010 ==

== ENCOUNTER → 2024-07-06 12:24 | Outpatient (BNV) | payer MEDICARE, MEDICAID, SELFPAY | PROVIDERS: Emergency Provider Emergency Medicine; PCP Nurse Practitioner Family; Visit Provider Radiology Diagnostic Radiology | DX: M79.601 Pain in right arm (principal); R22.31 Localized swelling, mass and lump, right upper limb | CPT/HCPCS: 93971 ==

== ENCOUNTER 2024-07-13 12:02 | Outpatient (AMB) | payer MEDICARE, MEDICAID, SELFPAY ==
[2024-07-13 12:26] VITALS: BP 136/80; PULSE 79; O2SAT 95; BMI 33.8
--- NOTE | 2024-07-13 12:26 | MHC.PC.OV ---
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 Accompanied by: Child Allergies No Known Allergies [No Known Allergies*] Allergy (Verified 07/13/24 13:03) Medication List - Last Reconciled 07/13/24 by TYRA Singer furosemide 60 mg (3 x 20 mg) PO BID ketoconazole 2% 1 appl topical BID metoprolol succinate ER 25 mg PO DAILY Tobacco use date assessed: 07/13/24 Fall risk assessment: 1 Fall in past year Last assessed Fall Risk: 07/13/24 Dental Screening Dental Screen Date: 07/13/24 Did you have a dental visit in the last 12 months?: No Did you have a dental problem in the last 6 months where you did not have access to dental care?: No Was dental information given to patient?: Patient declined 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 History of Present Illness The patient is an 89-year-old female presenting with the need for follow-up after an emergency room visit due to dehydration and muscular skeletal discomfort in the right forearm. She experienced cramping pain in her right forearm that moved upwards and temporarily worsened, prompting the ER visit. Diagnostic tests in the ER, including EKG and troponins, showed no acute changes, though a slightly elevated creatinine at 1.47 was detected, correlating with dehydration concerns. The patient did not report the slight shortness of breath at the time of the visit. A history of CHF necessitates careful management, as oral hydration was recommended. Her thyroid function tests revealed a TSH level of 4.25, slightly above normal, warranting monitoring. Despite discomfort, she is active in arts and crafts, such as painting. A history of aortic stenosis and elevated BNP over 400 is noted, and a cardiology follow-up is scheduled. She is currently in no acute distress, with faint crackles in her left lung base. Forearm discomfort is getting better Social History - Engages in arts and crafts activities such as painting and coloring. Health Maintenance - The patient is scheduled for a follow-up with cardiology regarding CHF and aortic stenosis. Review of Systems - Cardiovascular: Reports shortness of breath prior to ER visit. - Musculoskeletal: Reports cramping pain traveling up the right forearm. - Endocrine: Denies any significant changes aside from results indicating elevated TSH. -denies any fevers, chills, SOB, N/V, CP Physical Exam General: Cooperative, healthy appearing, comfortable, no acute distress and well developed Orientation: Patient oriented x3 Limitations: No limitations Head: Normal to inspection Ears: Hearing grossly normal bilaterally Nose: Normal external nose present Face and sinus: Normal facial exam Eyes: Appearance normal, both eyes and all related structures Neck: Normal visual inspection and Yes full ROM Respiratory: Normal respiratory effort and able to speak in complete sentences. Clear to auscultation bilaterally, very faint crackles to the left base Cardiovascular: Regular rate and rhythm. Normal S1 and S2, faint systolic murmur GI: Normal to inspection. Soft to palpation and nontender Skin: No rashes or lesions noted Neuro: Patient oriented x3 Extremities: Tenderness with palpation to her right forearm, overuse injury/muscular skeletal injury to her right upper extremity forearm region Results - Labs: Elevated creatinine at 1.47, elevated TSH at 4.25, elevated BNP above 400. - Tests and Diagnostics: EKG and troponins flat, indicating no acute cardiac changes. Plan The visit primarily focused on addressing concerns following the emergency visit for dehydration and right forearm discomfort. Her known CHF and aortic stenosis require continued cardiac evaluation, with a cardiology appointment scheduled for tomorrow. Recommend oral rehydration considering her elevated creatinine and will monitor her TSH levels further. Reassessment of her right forearm muscular discomfort acknowledges her involvement in arts and crafts and suggests overuse as a possible factor. The approach integrates comprehensive management for her existing conditions and necessary follow-up care. Discussion Notes During our discussion, I emphasized the likely diagnosis of dehydration and potential overuse injury contributing to her right forearm discomfort. We reviewed the necessity for careful monitoring of her cardiovascular status with scheduled follow-up in cardiology. I discussed the diagnostic lab findings: elevated creatinine suggesting dehydration and TSH elevation requiring continued surveillance. Recommendations for oral hydration were made with the caveat of her cardiac condition. We also explored the implications of maintaining her physical activity, factoring in the musculoskeletal pain. We outlined the follow-up plan focusing on CHF management and the importance of attending her cardiology appointment for comprehensive evaluation. Patient Instructions - Attend the cardiology appointment tomorrow. - Stay hydrated; drink fluids as recommended by your physician. - Continue gentle activities; listen to your body and rest if discomfort increases. - Report any new or worsening shortness of breath or pain promptly. [facility] Medical History (Reviewed 07/13/24 @ 12:57 by Orlando Alonso [facility] Aortic stenosis Surgical History Hx of appendectomy Hx of tonsillectomy History of knee surgery History of hysterectomy Family History Mother No problems noted. Father CAD (coronary artery disease) Social History Housing: House Alcohol intake: never Patient Tobacco Use Status: Former Tobacco user Years Smoked: 15+ e-Cigarette/Vaping Use: Never Used service: No Current occupational status: retired Cognitive needs: No Hearing needs: No Vision needs: No Questionnaire PHQ-9 Over the last 2 weeks, how often have you been bothered by any of the following problems? 1. Little interest or pleasure in doing things: not at all 2. Feeling down, depressed, or hopeless: not at all 3. Trouble falling or staying asleep, or sleeping too much: not at all 4. Feeling tired or having little energy: not at all 5. Poor appetite or overeating: nearly every day 6. Feeling bad about yourself - or that you are a failure or have let yourself or your family down: not at all 7. Trouble concentrating on things, such as reading the newspaper or watching television: not at all 8. Moving or speaking so slowly that other people could have noticed. Or the opposite - being so fidgety or restless that you have been moving around a lot more than usual: not at all 9. Thoughts that you would be better off or of hurting yourself in some way: not at all Total score: 3 Depression Screening Interpretation: Negative Depression Screening Done: Yes 25786 - PHQ-9 Billing: Yes Source: Developed by Drs. King Plummer, Marlyn Farnsworth, Mehdi Addison and colleagues, with an educational christiano from [employer]. Thrive Questionnaire Date Thrive assessed: 07/13/24 I am a: Patient What is your living situation today?: I have a steady place to live Within the past 12 months, did the food you bought not last and you didn't have the money to get more?: Never true Within the past 12 months, did you worry whether your food would run out before you got money to buy more?: Never true Do you have trouble paying for medicines?: No Do you have trouble getting transportation to medical appointments?: No Do you have trouble paying your heating and electricity bill?: No Do you have trouble taking care of your child, family member or friend?: No Do you have trouble with day-to-day activities such as bathing, preparing meals, shopping, managing finances, etc.?: No Are you currently unemployed and looking for a job?: No Are you interested in more education?: No Please select the resources that you would like help with: None Currently or been in a relationship where the following occur: No concerns reported THRIVE Score: 0 AUDIT C Alcohol Use Questionnaire (AUDIT-C) 1. How often do you have a drink containing alcohol?: Never 3. How often do you have six or more drinks on one occasion?: Never Total Score: 0 Score Reviewed/Action Taken: Yes PUSHPA-7 AMB Questionnaire PUSHPA-7 Date PUSHPA - 7 assessed: 07/13/24 Feeling nervous, anxious, or on edge: 0 = Not at all Not being able to stop or control worryin = Not at all Worrying too much about different things: 0 = Not at all Trouble relaxin = Not at all Being so restless that it is hard to sit still: 0 = Not at all Becoming easily annoyed or irritable: 0 = Not at all Feeling afraid as if something awful might happen: 0 = Not at all Total PUSHPA-7 score (0-4 normal; 5-9 mild; 10-14 moderate; 15-21 severe): 0 Source: Developed by Drs. King Plummer, Marlyn Farnsworth, Mehdi Addison and colleagues, with an educational christiano from [employer]. PUHSPA-7 Assessment Billing PUSHPA-7 Assessment Tool: PUSHPA-7 Assessment 97773 Physical exam (Primary Care) Vital Signs: Last Vital Signs Pulse 79 07/13/24 12:26 BP 136/80 07/13/24 12:26 Pulse Ox 95 07/13/24 12:26 Oxygen Delivery Method Room Air 07/13/24 12:26 BMI result Body Mass Index 33.8 Tobacco/Smoking Status: Tobacco use Status Tobacco use date assessed 07/13/24 07/13/24 12:30 Patient Tobacco Use Status Former Tobacco user 07/13/24 12:30 e-Cigarette/Vaping Use Never Used 07/13/24 12:30 PHQ-9: PHQ-9 Score PHQ-9: Total score 3 07/13/24 12:30 Depression Screening Interpretation: Negative Thrive Assessment: Date of Thrive Assessment Date Thrive assessed 07/13/24 07/13/24 12:30 Currently or been in a relationship where the following occur: No concerns reported Coding Level of Care Code New Pt Level 3 (72838) Diagnoses Elevated serum creatinine R7. Elevated TSH . Nonrheumatic aortic valve stenosis I35.0 Cardiac valve disease etiology: nonrheumatic Elevated brain natriuretic peptide (BNP) level . Additional Codes PUSHPA-7 Assessment Billing - PUSHPA-7 Assessment Tool: PUSHPA-7 Assessment 39775 ([id number]) PHQ-9 - 73225 - PHQ-9 Billing: Yes ([id number]) Assessment & Plan Assessment & Plan (1) Elevated serum creatinine: Code(s): R7.89 - Other specified abnormal findings of blood chemistry Category: Medical (2) Elevated TSH: Code(s): - Other specified abnormal findings of blood chemistry Category: Medical (3) Aortic stenosis: Code(s): I35.0 - Nonrheumatic aortic (valve) stenosis Category: Medical Qualifiers: Cardiac valve disease etiology: nonrheumatic Qualified Code(s): I35.0 - Nonrheumatic aortic (valve) stenosis (4) Elevated brain natriuretic peptide (BNP) level: Code(s): R7.89 - Other specified abnormal findings of blood chemistry Category: Medical Plan . Orders: Orders TSH reflex Free T4 Today - Other specified abnormal findings of blood chemistry Lipid Panel Today - Other specified abnormal findings of blood chemistry Thyroid Peroxidase Antibodies Today - Other specified abnormal findings of blood chemistry Complete Blood Count Auto Diff Today - Other specified abnormal findings of blood chemistry Comprehensive [place]. Panel Fast Today R7. - Other specified abnormal findings of blood chemistry UA CC w/rflx Micro + Cult Today R7 - Other specified abnormal findings of blood chemistry Vitamin D 25-OH Total Today R7. - Other specified abnormal findings of blood chemistry Medications: New ketoconazole 2% 1 appl topical BID 30 grams 0RF
== END 2024-07-13 13:21 | disposition home or self-care (01) ==
LOC: HO.HMCC 12:03
PROVIDERS: PCP Nurse Practitioner Family; Visit Provider Nurse Practitioner Family
DX: R79.89 Other specified abnormal findings of blood chemistry (principal); I35.0 Nonrheumatic aortic (valve) stenosis

== ENCOUNTER → 2024-07-13 12:02 | Outpatient (BNVA) | payer MEDICARE, MEDICAID, SELFPAY | PROVIDERS: PCP Nurse Practitioner Family; Visit Provider Nurse Practitioner Family | DX: R79.89 Other specified abnormal findings of blood chemistry (principal); I35.0 Nonrheumatic aortic (valve) stenosis | CPT/HCPCS: 96127; 99202 ==

== ENCOUNTER 2024-07-14 10:03 | Outpatient (AMB) | payer MEDICARE, MEDICAID, SELFPAY ==
--- NOTE | 2024-07-14 10:04 | A.OFFVIS_ITS ---
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 Today she states she has been doing well overall since her last visit in November. She did go to the emergency room recently due to right arm pain. She tells me she had been coloring daily and she was diagnosed as having a muscle cramp in her right arm. She now takes breaks during her coloring sessions. At the ER they also told her she was mildly dehydrated. She now has been drinking 1 small Gatorade drink per day as well as an additional 16 oz of fluid. She has had no chest discomfort at rest or with activity. Mild shortness of breath with exertion which is not new. No PND, orthopnea or edema. No heart palpitations, lightheadedness, presyncope, syncope, falls. She did not have transportation to come into the office. [facility] Medical History Aortic stenosis Surgical History Hx of appendectomy Hx of tonsillectomy History of knee surgery History of hysterectomy Family History Mother No problems noted. Father CAD (coronary artery disease) Social History Housing: House Alcohol intake: never Patient Tobacco Use Status: Former Tobacco user Years Smoked: 15+ e-Cigarette/Vaping Use: Never Used service: No Current occupational status: retired Cognitive needs: No Hearing needs: No Vision needs: No Review of Systems Const All systems reviewed & are unremarkable except as noted in HPI and below Card Denies chest pain, Denies chest pain at rest, Denies chest pain with activity, Denies syncope, Denies rapid heart rate, Denies palpitations, Denies dyspnea, Reports dyspnea on exertion and Denies orthopnea Resp Denies dyspnea and Reports dyspnea on exertion Denies no additional complaints Musc Denies no additional complaints Neuro Denies syncope Endo Denies palpitations Physical Exam Vital Signs: BMI result Body Mass Index 33.8 Telehealth Telehealth Telehealth Platform: Telephone Location of provider rendering services: practice address Patient Identification confirmed using: Name, : Yes Telehealth method: voice only Patient verbally consented to treatment: Yes Patient verbally consented to billing insurance company: Yes Patient informed of any privacy concerns related to visit: Yes Assessment & Plan Assessment & Plan (1) Aortic stenosis: Code(s): I35.0 - Nonrheumatic aortic (valve) stenosis Category: Medical Qualifiers: Cardiac valve disease etiology: nonrheumatic Qualified Code(s): I35.0 - Nonrheumatic aortic (valve) stenosis Plan: History of mild aortic stenosis, as of 2017. Last echo done 12/23/2016 showing EF 60-65%, no regional wall motion abnormalities, mild aortic stenosis, [id number] mitral regurgitation, mild pulmonary hypertension. She has declined further testing including echocardiogram. She only wants to be kept comfortable and treated with medications as needed. Cardinal signs of severe reviewed with her. Reviewed the progressive nature of aortic stenosis. She is not interested in any surgical intervention. Emergency care if ever needed for symptoms. Cardiology follow-up in 6 months, sooner if needed (2) CHF (congestive heart failure): Code(s): I50.9 - Heart failure, unspecified Category: Medical Qualifiers: Heart failure chronicity: chronic Heart failure type: diastolic Q ualified Code(s): I50.32 - Chronic diastolic (congestive) heart failure Plan: History of diastolic heart failure. She has been on Lasix 60 mg b.i.d.. Recent labs showed evidence of mild dehydration. Will have her reduce Lasix down to 60 mg in the a.m. and 40 mg in the p.m.. Suggested she increase her fluid intake by 8 oz daily. Recommended that she not drink Gatorade daily and cut back to at least every other day. Signs and symptoms of heart failure discussed, low-salt diet reviewed. (3) COPD (chronic obstructive pulmonary disease): Code(s): J44.9 - Chronic obstructive pulmonary disease, unspecified Category: Medical Qualifiers: COPD type: unspecified COPD Qualified Code(s): J44.9 - Chronic obstructive pulmonary disease, unspecified Plan: She has mild shortness of breath with exertion which is unchanged. Plan Time spent on chart review, documentation, interview and assessment Coding Level of Care Code Tele Est Pt Level 3 (40387) Complex EM visit Add On G2211 Diagnoses Nonrheumatic aortic valve stenosis I35.0 Cardiac valve disease etiology: nonrheumatic Chronic diastolic congestive heart failure I50.32 Heart failure chronicity: chronic Heart failure type: diastolic Chronic obstructive pulmonary disease, unspecified COPD type J44.9 COPD type: unspecified COPD Time Spent (min) 20
[2024-07-14 10:07] VITALS: BMI 33.8
== END 2024-07-14 10:39 | disposition home or self-care (01) ==
PROVIDERS: PCP Nurse Practitioner Family; Visit Provider Nurse Practitioner Family
DX: I35.0 Nonrheumatic aortic (valve) stenosis (principal); I50.32 Chronic diastolic (congestive) heart failure; J44.9 Chronic obstructive pulmonary disease, unspecified
CPT/HCPCS: 99213; G2211

== ENCOUNTER → 2024-07-14 10:03 | Outpatient (BNVA) | payer MEDICARE, MEDICAID, SELFPAY | PROVIDERS: PCP Nurse Practitioner Family; Visit Provider Nurse Practitioner Family ==